=== PATIENT | male | born 1985 | race Two or more races ===

== ENCOUNTER 2019-05-02 16:52 | Emergency (ER) | payer MEDICAID, OTHER ==
[~2019-05-02] VITALS: Ht 175.3 cm; Wt 99.8 kg
[2019-05-02] MEDS ORDERED: SODIUM CHLORIDE 0.9% 1,000 ML IVB ONE (17:53)
[2019-05-02] MEDS ORDERED: HALOPERIDOL LACTATE 5 MG/ML INJ VIAL IM ONE ×2 (18:00)
[2019-05-02] MEDS ORDERED: diphenhdrAMINE HCL 50 MG/1 ML VL ONE (18:17)
[2019-05-02] MEDS ORDERED: LORazepam 2MG/ML-1ML VIAL ONE (18:18)
[2019-05-02] MEDS ORDERED: LORazepam 2MG/ML-1ML VIAL IM ONE (18:30)
[2019-05-02] MEDS ORDERED: diphenhdrAMINE HCL 50 MG/1 ML VL IM ONE (18:30)
[2019-05-02 19:35] LABS: Basophils # (auto) 0 uL; Basophils % (auto) 0.5 % (0.0-2.0); Eosinophils # (auto) 0.2 uL; Eosinophils % (auto) 3.3 % (0.0-7.0); Hematocrit 43.4 % (41.0-53.0); Hemoglobin 14.7 g/dL (13.5-17.5); Lymphocytes # (auto) 2.2 uL; Lymphocytes % (auto) 31.4 % (10.0-50.0); Mean Corpuscular Hemoglobin 29.6 pg (28.0-32.0); Mean Corpuscular Hgb Conc. 33.8 g/dL (32.0-36.0); Mean Corpuscular Volume 87.6 fL (80.0-100.0); Monocytes # (auto) 0.8 uL; Neutrophils # (auto) 3.8 uL; Neutrophils % (auto) 53.8 % (37.0-80.0); Nucleated Red Blood Cells % 0.1 %; Platelet Count (auto) 270 10^3/uL (140-450); Red Blood Cells 4.95 10^6/uL (4.5-5.90); Red Cell Distribution Width 13.8 % (11.8-14.3)
[2019-05-02 19:41] LABS: Albumin 3.7 g/dL (3.4-5.0); Calcium 8.8 mg/dL (8.5-10.1); Potassium 3.6 mmol/L (3.5-5.1)
[2019-05-02 19:44] LABS: Bilirubin, Total 0.6 mg/dL (0.2-1.0); Total Protein 7.8 g/dL (6.4-8.2)
[2019-05-02 19:56] LABS: BUN/Creatinine Ratio 5.1
[2019-05-02 19:57] LABS: Acetaminophen < 2.0 ug/mL (10-30)
[2019-05-02 19:58] LABS: Salicylate 1.7 mg/dL (2.8-20.0)
[2019-05-02] MEDS ORDERED: POTASSIUM EFFERVESENT TAB 25 MEQ PO ONE (20:30)
[2019-05-02] MEDS ORDERED: InsuLIN REG 1unit/0.01ml Soln (100units/ml) IV ONE (20:30)
[2019-05-02] MEDS ORDERED: SODIUM CHLORIDE 0.9% 1,000 ML IV ONE (20:30)
[2019-05-02 20:58] LABS: Urine WBC None Seen /hpf (0 - 3)
[2019-05-02 21:23] LABS: Urine Bacteria FEW /hpf (None Seen); Urine Blood Negative /uL (Negative); Urine Specific Gravity 1.011 (1.001-1.035)
[2019-05-02 21:40] LABS: Alcohol, Urine < 3.0 mg/dL (0-5); Amphetamine Screen, Urine POSITIVE (NEGATIVE); Barbiturate Scree,Urine NEGATIVE (NEGATIVE); Benzodiazephine Screen, Urine NEGATIVE (NEGATIVE); Cannabinoid Screen, Urine NEGATIVE (NEGATIVE); Cocaine Screen, Urine NEGATIVE (NEGATIVE); Opiate Scree,Urine NEGATIVE (NEGATIVE); Phencyclidine Screen, Urine NEGATIVE (NEGATIVE)
[2019-05-02] MEDS ORDERED: InsuLIN REG 1unit/0.01ml Soln (100units/ml) SC ONE (23:30)
[2019-05-03] MEDS ORDERED: LORazepam 2MG/ML-1ML VIAL IM ONE (14:30)
[2019-05-03] MEDS ORDERED: diphenhdrAMINE HCL 50 MG/1 ML VL IM ONE (14:30)
[2019-05-03] MEDS ORDERED: HALOPERIDOL LACTATE 5 MG/ML INJ VIAL IM ONE (14:30)
[2019-05-03] MEDS ORDERED: LORazepam 2MG/ML-1ML VIAL ONE (14:35)
[2019-05-04] MEDS: LORazepam 0.5 MG TAB PO PRN (04:57)
[2019-05-04] MEDS ORDERED: SODIUM CHLORIDE 0.9% 2,000 ML IV ONE (08:15)
[2019-05-04] MEDS ORDERED: OLANZapine 5 MG TAB PO SCH (10:00)
[2019-05-04] MEDS ORDERED: INSULIN LISPRO (HUMAN) 100 UNITS/ML ML SC ONE (11:30)
[2019-05-04] MEDS ORDERED: InsuLIN REG 1unit/0.01ml Soln (100units/ml) IV ONE (11:30)
[2019-05-04] MEDS ORDERED: metFORMIN HYDROCHLORIDE 500 MG TAB PO ONE (12:30)
[2019-05-04] MEDS ORDERED: LORazepam 0.5 MG TAB PO ONE ×2 (21:15→21:30)
[2019-05-05] MEDS ORDERED: DEXTROSE (50%) 50ML SYRG IV PRN (08:15)
[2019-05-05] MEDS ORDERED: InsuLIN REG 1unit/0.01ml Soln (100units/ml) SC ONE (08:30)
[2019-05-05] MEDS ORDERED: metFORMIN HYDROCHLORIDE 500 MG TAB PO SCH (10:00)
[2019-05-05] MEDS: risperiDONE 1 MG TAB PO SCH ×2 (11:03→22:19)
[2019-05-05] MEDS: ACCU-CHEK COMFORT CURVE STRIP VI SCH ×2 (12:40→18:11)
[2019-05-05] MEDS: InsuLIN REG 1unit/0.01ml Soln (100units/ml) SC SCH ×2 (12:45→18:11)
[2019-05-05] MEDS: LORazepam 0.5 MG TAB PO PRN (18:11)
[2019-05-05] MEDS ORDERED: LORazepam 0.5 MG TAB PO PRN (18:15)
[2019-05-06] MEDS: InsuLIN REG 1unit/0.01ml Soln (100units/ml) SC SCH ×2 (00:40→06:19)
[2019-05-06] MEDS ORDERED: InsuLIN REG 1unit/0.01ml Soln (100units/ml) ONE ×2 (00:44→06:16)
[2019-05-06 06:01] VITALS: BP 108/68
[2019-05-06] MEDS: ACCU-CHEK COMFORT CURVE STRIP VI SCH ×2 (06:05)
[2019-05-06] MEDS ORDERED: metFORMIN HYDROCHLORIDE 500 MG TAB ONE (07:28)
[2019-05-06] MEDS ORDERED: metFORMIN HYDROCHLORIDE 500 MG TAB PO SCH (08:00)
[2019-05-06] MEDS ORDERED: risperiDONE 1 MG TAB ONE (10:05)
[2019-05-06] MEDS: risperiDONE 1 MG TAB PO SCH (10:10)
== END 2019-05-06 11:32 | disposition home or self-care (01) ==
LOC: EDBD 16:52 → EDSEX 17:02 → ER 17:02
DX: F29 Unspecified psychosis not due to a substance or known physiological condition (principal); R41.0 Disorientation, unspecified; F17.210 Nicotine dependence, cigarettes, uncomplicated; F12.10 Cannabis abuse, uncomplicated; F41.9 Anxiety disorder, unspecified; F20.9 Schizophrenia, unspecified
CPT/HCPCS: 36415; 71045; 80053; 80307; 80320; 80329; 81001; 82550; 82962; 85025; 93005; 96361; 96372; 96374; 96376; 99285; J1200; J1630; J1815; J2060; J7030

== ENCOUNTER 2019-05-07 23:10 | Emergency (ER) | payer MEDICAID ==
[~2019-05-07] VITALS: Ht 172.7 cm; Wt 86.2 kg
[2019-05-07 23:20] VITALS: BP 127/88
[2019-05-07 23:58] LABS: Basophils # (auto) 0 uL; Basophils % (auto) 0.5 % (0.0-2.0); Eosinophils # (auto) 0.1 uL; Hematocrit 44.7 % (41.0-53.0); Lymphocytes # (auto) 2.2 uL; Lymphocytes % (auto) 28.2 % (10.0-50.0); Mean Corpuscular Hemoglobin 30.8 pg (28.0-32.0); Mean Corpuscular Hgb Conc. 33.6 g/dL (32.0-36.0); Mean Corpuscular Volume 91.7 fL (80.0-100.0); Monocytes # (auto) 0.7 uL; Monocytes % (auto) 9.5 % (0.0-12.0); Neutrophils # (auto) 4.7 uL; Neutrophils % (auto) 60.8 % (37.0-80.0); Platelet Count (auto) 283 10^3/uL (140-450); Red Blood Cells 4.88 10^6/uL (4.5-5.90); Red Cell Distribution Width 13.6 % (11.8-14.3); White Blood Cell 7.7 10^3/uL (4.4-10.8)
[2019-05-08 00:14] LABS: Salicylate 2.3 mg/dL (2.8-20.0)
[2019-05-08 00:15] LABS: Acetaminophen < 2.0 ug/mL (10-30); Alanine Aminotransferase 23 U/L (16-61); Albumin 3.5 g/dL (3.4-5.0); Anion Gap 15 (5-15); Aspartate Aminotransferase 15 U/L (15-37); BUN/Creatinine Ratio 5.8; Blood Alcohol < 3.0 mg/dL (0-5); Blood Urea Nitrogen 9 mg/dL (7-18); Carbon Dioxide 17 mmol/L (21-32); Chloride 96 mmol/L (98-107); GFR African American 66 mL/min; GFR Non-African American 55 mL/min; Sodium 128 mmol/L (136-145)
[2019-05-08 00:17] LABS: Alcohol, Urine < 3.0 mg/dL (0-5); Amphetamine Screen, Urine NEGATIVE (NEGATIVE); Barbiturate Scree,Urine NEGATIVE (NEGATIVE); Benzodiazephine Screen, Urine NEGATIVE (NEGATIVE); Cannabinoid Screen, Urine NEGATIVE (NEGATIVE); Cocaine Screen, Urine NEGATIVE (NEGATIVE); Opiate Scree,Urine NEGATIVE (NEGATIVE); Phencyclidine Screen, Urine NEGATIVE (NEGATIVE)
[2019-05-08 00:22] LABS: Alkaline Phosphatase 178 U/L (45-117); Bilirubin, Total 0.3 mg/dL (0.2-1.0); Calcium 8.6 mg/dL (8.5-10.1); Total Protein 8.2 g/dL (6.4-8.2)
[2019-05-08] MEDS: SODIUM CHLORIDE 0.9% 1,000 ML IV ONE ×3 (00:33→01:09)
[2019-05-08 00:34] LABS: Glucose 741 mg/dL (74-106)
[2019-05-08] MEDS: LORazepam 2MG/ML-1ML VIAL IV ONE (01:09)
[2019-05-08] MEDS: InsuLIN REG 1unit/0.01ml Soln (100units/ml) IV ONE ×3 (01:09→04:04)
[2019-05-08] MEDS: HALOPERIDOL LACTATE 5 MG/ML INJ VIAL IM ONE (06:27)
== END 2019-05-08 07:00 | disposition home or self-care (01) ==
LOC: EDBD 23:10 → ER 23:10
DX: F20.0 Paranoid schizophrenia (principal); E11.65 Type 2 diabetes mellitus with hyperglycemia; F17.210 Nicotine dependence, cigarettes, uncomplicated
CPT/HCPCS: 36415; 80053; 80307; 80320; 80329; 82010; 82962; 85025; 96361; 96372; 96374; 96375; 96376; 99283; J1630; J1815; J2060; J7030

== ENCOUNTER 2019-05-08 13:11 | Inpatient (IN) | payer MEDICAID, OTHER ==
[~2019-05-08] VITALS: Ht 175.3 cm; Wt 215.0 kg
[2019-05-08 14:05] LABS: Basophils # (auto) 0 uL; Basophils % (auto) 0.7 % (0.0-2.0); Eosinophils # (auto) 0.2 uL; Eosinophils % (auto) 3.6 % (0.0-7.0); Hematocrit 41.4 % (41.0-53.0); Hemoglobin 13.7 g/dL (13.5-17.5); Lymphocytes # (auto) 1.5 uL; Lymphocytes % (auto) 31.2 % (10.0-50.0); Mean Corpuscular Hgb Conc. 33.2 g/dL (32.0-36.0); Mean Corpuscular Volume 90.3 fL (80.0-100.0); Monocytes # (auto) 0.4 uL; Monocytes % (auto) 9.4 % (0.0-12.0); Neutrophils # (auto) 2.6 uL; Neutrophils % (auto) 55.1 % (37.0-80.0); Nucleated Red Blood Cells % 0.1 %; Platelet Count (auto) 252 10^3/uL (140-450); Red Blood Cells 4.59 10^6/uL (4.5-5.90); Red Cell Distribution Width 13.6 % (11.8-14.3); White Blood Cell 4.8 10^3/uL (4.4-10.8)
[2019-05-08 14:25] LABS: Chloride 100 mmol/L (98-107); Potassium 4.3 mmol/L (3.5-5.1); Sodium 132 mmol/L (136-145)
[2019-05-08 14:36] LABS: Anion Gap 8 (5-15); BUN/Creatinine Ratio 7.6; Blood Alcohol < 3.0 mg/dL (0-5); Blood Urea Nitrogen 10 mg/dL (7-18); Calcium 8.3 mg/dL (8.5-10.1); Carbon Dioxide 24 mmol/L (21-32); GFR African American 79 mL/min; GFR Non-African American 66 mL/min
[2019-05-08 14:45] LABS: Glucose 703 mg/dL (74-106)
[2019-05-08] MEDS ORDERED: SODIUM CHLORIDE 0.9% 1,000 ML IVB ONE (14:52)
[2019-05-08] MEDS ORDERED: InsuLIN REG 1unit/0.01ml Soln (100units/ml) IV ONE (15:00)
[2019-05-08 15:44] LABS: Alcohol, Urine < 3.0 mg/dL (0-5); Amphetamine Screen, Urine NEGATIVE (NEGATIVE); Barbiturate Scree,Urine NEGATIVE (NEGATIVE); Benzodiazephine Screen, Urine NEGATIVE (NEGATIVE); Cannabinoid Screen, Urine NEGATIVE (NEGATIVE); Cocaine Screen, Urine NEGATIVE (NEGATIVE); Opiate Scree,Urine NEGATIVE (NEGATIVE); Phencyclidine Screen, Urine NEGATIVE (NEGATIVE)
[2019-05-08] MEDS ORDERED: DEXTROSE (50%) 50ML SYRG IV PRN (16:00)
[2019-05-08] MEDS ORDERED: NITROGLYCERIN 0.4 MG SL TAB SL PRN (16:00)
[2019-05-08] MEDS ORDERED: MORPHINE SULF INJ 2 MG/ML SYRINGE 1ML IV PRN (16:00)
[2019-05-08] MEDS ORDERED: ACETAMINOPHEN 500 MG TAB PO PRN (16:00)
[2019-05-08] MEDS ORDERED: PROMETHAZINE HCL 25 MG/ML 1ML IV PRN (16:00)
[2019-05-08] MEDS ORDERED: TEMAZEPAM 15 MG CAP PO PRN (16:00)
[2019-05-08] MEDS ORDERED: INSULIN LANTUS (GLARGINE) 1 /0.01ml (100units/ml) SC ONE (16:00)
[2019-05-08] MEDS ORDERED: traMADol HCL 50 MG TAB PO PRN (16:00)
[2019-05-08] MEDS ORDERED: LACTULOSE 20Gm/30ML SOLN PO PRN (16:00)
[2019-05-08] MEDS: ACCU-CHEK COMFORT CURVE STRIP VI SCH ×2 (16:15→19:45)
[2019-05-08] MEDS: SODIUM CHLORIDE 0.9% 1,000 ML IV SCH ×2 (16:16→22:27)
[2019-05-08] MEDS: InsuLIN REG 1unit/0.01ml Soln (100units/ml) SC SCH ×2 (16:22→21:01)
[2019-05-08 16:55] LABS: Amylase 34 U/L (25-115); Lipase 194 U/L (73-393)
[2019-05-08 22:00] VITALS: BP 112/64
[2019-05-08] MEDS: INSULIN LANTUS (GLARGINE) 1 /0.01ml (100units/ml) SC SCH (22:00)
[2019-05-08] MEDS: FAMOTIDINE 20 MG TAB PO SCH (22:00)
[2019-05-09] MEDS: ACCU-CHEK COMFORT CURVE STRIP VI SCH ×6 (04:00→22:02)
[2019-05-09] MEDS: InsuLIN REG 1unit/0.01ml Soln (100units/ml) SC SCH ×6 (04:00→22:01)
[2019-05-09 05:00] VITALS: BP 119/71
[2019-05-09] MEDS: SODIUM CHLORIDE 0.9% 1,000 ML IV SCH (05:07)
[2019-05-09] MEDS: INSULIN LANTUS (GLARGINE) 1 /0.01ml (100units/ml) SC SCH ×2 (07:00→22:09)
--- NOTE | 2019-05-09 07:32 | NUR ---
Opening Shift Note Assumed care of patient, patient asleep verbally awake and alert. No S/S of distress/SOB or pain. Instructed on POC and to call for assist PRN, will continue to monitor for changes Q1hr and PRN
--- NOTE | 2019-05-09 07:51 | NUR ---
rounded on patient patient in bathroom using inappropriate language and yelling at himself cussing, advised patient to go back to bed and made verbal contract with patient reorientated him to the hospital and that that type of behavior is not tolerated in the hospital pt verbalized understanding made aware of his surroundings
[2019-05-09 08:53] VITALS: BP 132/75
[2019-05-09] MEDS: FAMOTIDINE 20 MG TAB PO SCH ×2 (08:57→22:09)
[2019-05-09] MEDS: ENOXAPARIN SOD 40 MG/0.4 ML SYRINGE SC SCH (08:57)
--- NOTE | 2019-05-09 09:38 | NUR ---
PT MOVED TO NEW PRIVATE ROOM WITH TOMI PT RECOGNIZES THAT HE IS HEARING VOICES HE CURRENTLY STATES THE VOICES ARE NOT TELLING HIM TO KILL HIMSELF OR OTHERS BUT STATES HE STILL FEELS SUICIDAL PATIENT ALSO STATES THAT HE USED TO TAKE RISPERDAL BID BUT DOESNT REMEBER THE DOSAGE AND IT HELPED CALM THE VOICES
--- NOTE | 2019-05-09 10:37 | NUR ---
MD HILTON ROUNDED ON PATIENT WILL PUT IN ORDER FOR RISPERDAL BID
[2019-05-09] MEDS ORDERED: risperiDONE 1 MG TAB PO ONE (10:45)
--- NOTE | 2019-05-09 10:45 | NUR ---
per ok to discontinue tele monitor downgrade to medsurg and discontinue iv fluids sitter at bedside tele psych monitor placed in front of patient
--- NOTE | 2019-05-09 15:52 | NUR ---
assessment Patient is a 34 year old male who is alert and hearing voices. patient informed me he was diagnosed years ago with Schizophrenia. Patient informed me he was living at [facility] in [place] and Cain Willingham is his conservator for his SSI. I will continue to try and find [facility] in . Until then patient needs tele psych when medically stable and possible 50. Addendum: 05/09/19 at 1556 by Tawny PRIDE Amended: Links added.
--- NOTE | 2019-05-09 16:51 | NUR ---
Received consult for pt who is homeless. Pt states he was brought up here to the [facility] from a [facility] in [facility]. He was dropped off at the ER. The pt states that he has 4 people inside his head. He states they all tell him what to do. Pt states he has no family in the area. He was living in a detention and he got caught smoking behind the building. Pt states he has clothes, shoes but no where to go. He would like to go to a detention in [place]. Will consult with Geotechnicial Properties Technician II.
[2019-05-09] MEDS: risperiDONE 1 MG TAB PO SCH (17:30)
[2019-05-09 22:00] VITALS: BP 119/76
[2019-05-10] MEDS: InsuLIN REG 1unit/0.01ml Soln (100units/ml) SC SCH ×7 (01:25→21:51)
[2019-05-10] MEDS: ACCU-CHEK COMFORT CURVE STRIP VI SCH ×7 (01:26→21:51)
[2019-05-10 05:00] VITALS: BP 122/75
[2019-05-10] MEDS: INSULIN LANTUS (GLARGINE) 1 /0.01ml (100units/ml) SC SCH ×2 (06:02→21:50)
[2019-05-10 06:08] LABS: Basophils # (auto) 0 uL; Basophils % (auto) 0.7 % (0.0-2.0); Eosinophils # (auto) 0.2 uL; Eosinophils % (auto) 3.6 % (0.0-7.0); Hematocrit 39.4 % (41.0-53.0); Hemoglobin 13.5 g/dL (13.5-17.5); Lymphocytes # (auto) 2.7 uL; Lymphocytes % (auto) 42.3 % (10.0-50.0); Mean Corpuscular Hemoglobin 29.9 pg (28.0-32.0); Mean Corpuscular Hgb Conc. 34.2 g/dL (32.0-36.0); Mean Corpuscular Volume 87.5 fL (80.0-100.0); Monocytes # (auto) 0.5 uL; Monocytes % (auto) 8.1 % (0.0-12.0); Neutrophils # (auto) 2.9 uL; Neutrophils % (auto) 45.3 % (37.0-80.0); Nucleated Red Blood Cells % 0.2 %; Platelet Count (auto) 270 10^3/uL (140-450); Red Cell Distribution Width 13.6 % (11.8-14.3); White Blood Cell 6.4 10^3/uL (4.4-10.8)
[2019-05-10 06:11] LABS: Calcium 8.5 mg/dL (8.5-10.1); Potassium 3.7 mmol/L (3.5-5.1)
[2019-05-10 06:12] LABS: BUN/Creatinine Ratio 9.9
[2019-05-10 08:00] VITALS: BP 111/61
[2019-05-10] MEDS: risperiDONE 1 MG TAB PO SCH ×2 (08:32→17:32)
[2019-05-10] MEDS: FAMOTIDINE 20 MG TAB PO SCH ×2 (08:32→21:49)
[2019-05-10] MEDS: ENOXAPARIN SOD 40 MG/0.4 ML SYRINGE SC SCH (08:32)
[2019-05-10 09:00] VITALS: BP 111/61
--- NOTE | 2019-05-10 10:00 | NUR ---
Patient is screaming inappropriate language towards the window. Asked him to have a seat and to lower his voice as there are others who are trying to rest.
--- NOTE | 2019-05-10 10:47 | NUR ---
Opening Shift Note Assumed care of patient, awake and alert. Currently patient is having breakfast in bed, no c/o pain, patient denies hearing voices at this time. No S/S of distress/SOB or pain. Instructed on POC and to call for assist PRN, will continue to monitor for changes Q1hr and PRN.Sitter at bedside for safety. Addendum: 05/10/19 at 1057 by Rosie Joyner RN 08:00 opening note
--- NOTE | 2019-05-10 12:24 | NUR ---
rounds Patient is sitting up in bed enjoying lunch, no c/o pain. Patient denies any thoughts of hurting self/others. Bed at lowest locked position and call light within reach. Sitter at bedside for safety.
[2019-05-10 17:00] VITALS: BP 92/53
--- NOTE | 2019-05-10 19:46 | NUR ---
CLOSING NOTE CARE ENDORSED TO NOC RN, SITTER AT BEDSIDE.
[2019-05-11] MEDS: ACCU-CHEK COMFORT CURVE STRIP VI SCH ×5 (05:20→20:07)
[2019-05-11] MEDS: InsuLIN REG 1unit/0.01ml Soln (100units/ml) SC SCH ×5 (05:20→20:15)
[2019-05-11] MEDS: INSULIN LANTUS (GLARGINE) 1 /0.01ml (100units/ml) SC SCH ×2 (07:00→21:40)
--- NOTE | 2019-05-11 08:03 | NUR ---
PAGECalvin CESPEDES IN REGARDS TO PATIENTS BLOOD GLUCOSE OF 458. ORDERED LANTUS 25 UNITS BID AND 15 UNTIS REGULAR INSULIN
[2019-05-11] MEDS: risperiDONE 1 MG TAB PO SCH ×2 (08:42→17:16)
[2019-05-11 09:00] VITALS: BP 131/78
[2019-05-11] MEDS: ENOXAPARIN SOD 40 MG/0.4 ML SYRINGE SC SCH (11:04)
[2019-05-11] MEDS: FAMOTIDINE 20 MG TAB PO SCH ×2 (11:04→21:40)
[2019-05-11 11:56] LABS: BUN/Creatinine Ratio 12.1; Potassium 4.3 mmol/L (3.5-5.1)
[2019-05-11 13:00] VITALS: BP 129/70
[2019-05-11 13:01] LABS: Cholesterol 152 mg/dL (< 200); HDL Cholesterol 61 mg/dL (40-59); LDL Cholesterol 76 mg/dL (< 100); Triglycerides 134 mg/dL (< 150)
--- NOTE | 2019-05-11 16:03 | NUR ---
POC Patient to be discharged tomorrow to facility. Patient states he lives at [facility] long-term for recovery.
[2019-05-11 17:00] VITALS: BP 121/80
--- NOTE | 2019-05-11 19:15 | NUR ---
OPENING NOTE- NOC SHIFT PATIENT IS ALERT AND ORIENTED. PATIENT KNOWS WHERE HE IS AT, SITUATION, PREVIOUS LIVING ARRANGEMENT, TIME AND PLACE. PATIENT STATES THAT HE HEARS VOICES THAT TALK TO HIM AND THAT THE VOICES TALK TO EACH OTHER WELL. PATIENT IS TALKING AND WHEN ASKED WHO HE IS TALKING TO HE STATES THAT HE IS ANSWERING TO THE VOICES THAT HEARS. HE STATES "HE IS THE ONE WHO BLEW UP THE OTHER BUILDING" "GOING TO RUN AGAIN, GOING TO RUN AGAIN". PATIENT DENIES THAT THE VOICES TELL HIM TO HURST HIMSELF OR HURT OTHERS. NURSE MISSION PLANNER IS AT BEDSIDE FOR SAFETY PRECAUTIONS. BEDSIDE TABLE WITHIN REACH, CALL LIGHT WITHIN REACH. WILL CONTINUE TO MONITOR Q1H AND PRN. NO S/SX OF DISTRESS, SOB OR PAIN. PATIENT IS COOPERATIVE WITH ASSESSMENT AT THIS TIME AND STATES THAT HE UNDERSTANDS POC WHEN EXPLAINED TO HIM.
[2019-05-11 20:15] VITALS: BP 126/72
--- NOTE | 2019-05-11 21:08 | NUR ---
PROVIDED PATIENT WITH TURKEY SANDWICH, LOW FAT MILK AND SUGAR FREE JELLO PER PATIENT REQUEST.
[2019-05-12] MEDS: InsuLIN REG 1unit/0.01ml Soln (100units/ml) SC SCH ×6 (00:06→22:40)
[2019-05-12] MEDS: ACCU-CHEK COMFORT CURVE STRIP VI SCH ×6 (00:07→22:40)
--- NOTE | 2019-05-12 00:50 | NUR ---
PATIENT CURSING IN LOUD VOICE, IN BED. NOT COMBATIVE. COOPERATIVE WHEN ASKED TO KEEP HIS VOICE DOWN IN ORDER TO LET OTHER PATIENTS IN THE HOSPITAL SLEEP.
[2019-05-12] MEDS: INSULIN LANTUS (GLARGINE) 1 /0.01ml (100units/ml) SC SCH ×2 (07:00→22:40)
--- NOTE | 2019-05-12 07:36 | NUR ---
ENDORSED PATIENT CARE TO DAY SHIFT NURSE YAZMIN AVENDANO. NO S/SX OF DISTRESS, SOB OR PAIN. PATIENT IS RESTING IN BED. NURSE CUSTOMER ENGAGEMENT ANALYST AT BEDSIDE FOR SAFETY PRECAUIONS.
--- NOTE | 2019-05-12 07:40 | NUR ---
Opening Shift Note Assumed care of patient, awake and alert, eating breakfast independently. No S/S of distress/SOB or pain on room air. Instructed on POC and to call for assist PRN, will continue to monitor for changes Q1hr and PRN. Bed in low and locked position, rails up x2, no-slip socks on, product safety head at bedside.
[2019-05-12] MEDS: risperiDONE 1 MG TAB PO SCH ×2 (08:44→18:49)
[2019-05-12] MEDS: ENOXAPARIN SOD 40 MG/0.4 ML SYRINGE SC SCH (10:03)
[2019-05-12] MEDS: FAMOTIDINE 20 MG TAB PO SCH ×2 (10:04→22:40)
--- NOTE | 2019-05-12 15:30 | NUR ---
DR HILTON AT BEDSIDE NO NEW ORDERS
--- NOTE | 2019-05-12 19:20 | NUR ---
OPENING NOTE- NOC SHIFT PATIENT IS IN BED RESTING COMFORTABLE. NO S/SX OF DISTRESS, SOB OR PAIN. NURSE CERAMIC ARTIST IS AT BEDSIDE FOR SAFETY PRECAUTIONS. BED IS LOCKED AT LOWEST POSITION, BED RAILS UP X2 AND BEDSIDE TABLE IS WITHIN REACH. WILL CONTINUE TO MONITOR Q1H AND PRN.
--- NOTE | 2019-05-12 20:00 | NUR ---
PATIENT REFUSED BLOOD SUGAR CHECK. HE IS UPSET AND STATES THAT HE WANTS TO SLEEP AND DOES NOT WANT TO BE WAKEN UP WHEN HE IS SLEEPING.
[2019-05-12 20:15] VITALS: BP 112/58
[2019-05-12 22:00] VITALS: BP 112/58
--- NOTE | 2019-05-13 | NUR ---
PATIENT REFUSED MIDNIGHT BLOOD SUGAR CHECK. PATIENT BECOMES AGGRESSIVE WHEN BEING WAKEN UP. HE USES THE COVERS TO COVER HIMSELF TO HIS HEAD IN ORDER TO AVOID TREATMENT. EDUCATED PATIENT REGARDING IMPORTANCE OF BLOOD SUGAR CHECKS AND INSULIN ADMINISTRATION TO CONTROL HIS HIGH BLOOD SUGARS; PATIENT STILL REFUSES.
[2019-05-13] MEDS: InsuLIN REG 1unit/0.01ml Soln (100units/ml) SC SCH ×4 (04:12→12:00)
[2019-05-13] MEDS: ACCU-CHEK COMFORT CURVE STRIP VI SCH ×4 (04:12→12:00)
[2019-05-13 05:00] VITALS: BP 124/74
[2019-05-13 07:00] LABS: Basophils # (auto) 0 uL; Basophils % (auto) 0.6 % (0.0-2.0); Eosinophils # (auto) 0.2 uL; Hematocrit 42.8 % (41.0-53.0); Hemoglobin 14.7 g/dL (13.5-17.5); Lymphocytes # (auto) 2.1 uL; Lymphocytes % (auto) 30.7 % (10.0-50.0); Mean Corpuscular Hemoglobin 30.2 pg (28.0-32.0); Mean Corpuscular Hgb Conc. 34.3 g/dL (32.0-36.0); Mean Corpuscular Volume 87.9 fL (80.0-100.0); Monocytes # (auto) 0.5 uL; Neutrophils # (auto) 3.9 uL; Neutrophils % (auto) 57.7 % (37.0-80.0); Nucleated Red Blood Cells % 0.1 %; Platelet Count (auto) 271 10^3/uL (140-450); Red Blood Cells 4.87 10^6/uL (4.5-5.90); Red Cell Distribution Width 14.1 % (11.8-14.3); White Blood Cell 6.8 10^3/uL (4.4-10.8)
[2019-05-13] MEDS: INSULIN LANTUS (GLARGINE) 1 /0.01ml (100units/ml) SC SCH (07:08)
[2019-05-13 07:25] LABS: Calcium 9.4 mg/dL (8.5-10.1); Potassium 4.2 mmol/L (3.5-5.1)
[2019-05-13 07:28] LABS: BUN/Creatinine Ratio 18.3
--- NOTE | 2019-05-13 07:30 | NUR ---
Opening Shift Note Assumed care of patient, awake and alert. No S/S of distress/SOB or pain on room air. Instructed on POC and to call for assist PRN, will continue to monitor for changes Q1hr and PRN. Bed in low and locked position, rails up x2, no-slip socks on. furnace attendant at bedside.
--- NOTE | 2019-05-13 07:30 | NUR ---
ENDORSED PATIENT CARE TO DAY SHIFT NURSE YAZMIN AVENDANO. NO S/SX OF DISTRESS, SOB OR PAIN.
--- NOTE | 2019-05-13 07:55 | NUR ---
PATIENT REMOVED OWN IV STATED THAT HE IS SUPPOSED TO BE LEAVING THE HOSPITAL TODAY AND THAT HE DOES NOT NEED IT. PRESSURE DRESSING REFUSED, PATIENT HAD SCANT BLEEDING TO SITE. CATHETER FULLY INTACT ON REMOVAL. INFORMED PATIENT ON RISKS OF NOT HAVING AN IV WHILE PRESENT IN THE HOSPITAL BUT ADAMANTLY REFUSED STATING THAT HE DOESN'T NEED IT. WILL INFORM
[2019-05-13] MEDS: risperiDONE 1 MG TAB PO SCH (07:56)
--- NOTE | 2019-05-13 08:50 | NUR ---
SPOKE TO DR HILTON PATIENT IS ADAMANT ABOUT LEAVING HOSPITAL TODAY, INFORMED BY DR HILTON THAT THE PATIENT IS NO LONGER 5150 AND WE CANNOT HOLD HIM. PATIENT VERBALIZES THAT HE NEEDS CLOTHES AND TRANSPORTATION TO [facility]. WILL ATTEMPT TO FIND HIM CLOTHING FROM [employer]. CALL TO CASE MANAGEMENT REGARDING TAXI VOUCHER.
[2019-05-13] MEDS: ENOXAPARIN SOD 40 MG/0.4 ML SYRINGE SC SCH (10:00)
[2019-05-13] MEDS: FAMOTIDINE 20 MG TAB PO SCH (10:00)
--- NOTE | 2019-05-13 12:32 | NUR ---
AMA Note SHAINA CURRAN states they want to leave the hospital Against Medical Advice (AMA). Patient encouraged to stay for further treatment/stabilization. LIDA SANCHEZ notified of patient's wishes. Patient advised of the risks of leaving AMA. Patient verbalized understanding. Patient encouraged to return to the ER if symptoms do not improve or worsen.
== END 2019-05-13 12:30 | disposition left against medical advice (07) | DRG 52 ==
LOC: EDBD 13:11 → ER 13:24 → TELE 13:25 → TELE-WESTW 21:05 → WEST WING 05-09 20:53
PROVIDERS: ADMIT Internal Medicine; ATTEND Internal Medicine
DX: G92 Toxic encephalopathy (principal); N17.0 Acute kidney failure with tubular necrosis; E10.65 Type 1 diabetes mellitus with hyperglycemia; L03.115 Cellulitis of right lower limb; E87.1 Hypo-osmolality and hyponatremia; E10.21 Type 1 diabetes mellitus with diabetic nephropathy; F20.9 Schizophrenia, unspecified; Z68.45 Body mass index [BMI] 70 or greater, adult; F32.9 Major depressive disorder, single episode, unspecified; N18.9 Chronic kidney disease, unspecified; E66.9 Obesity, unspecified; L03.116 Cellulitis of left lower limb; Z53.29 Procedure and treatment not carried out because of patient's decision for other reasons; F15.10 Other stimulant abuse, uncomplicated; F17.210 Nicotine dependence, cigarettes, uncomplicated; F12.10 Cannabis abuse, uncomplicated; E10.22 Type 1 diabetes mellitus with diabetic chronic kidney disease; R45.851 Suicidal ideations; Z91.14 Patient's other noncompliance with medication regimen; Z59.0 Homelessness; Z82.49 Family history of ischemic heart disease and other diseases of the circulatory system; Z83.3 Family history of diabetes mellitus
CPT/HCPCS: 36415; 80048; 80061; 80307; 80320; 82010; 82150; 82962; 83036; 83690; 83735; 84443; 85025; 96361; 96372; 96374; G0378; J1815

== ENCOUNTER 2019-05-31 20:36 | Emergency (ER) | payer OTHER ==
[~2019-05-31] VITALS: Ht 175.3 cm; Wt 97.5 kg
[2019-05-31] MEDS ORDERED: SODIUM CHLORIDE 0.9% 1,000 ML IV ONE ×2 (21:00→23:15)
[2019-05-31] MEDS ORDERED: InsuLIN REG 1unit/0.01ml Soln (100units/ml) IV ONE (21:00)
[2019-05-31 21:19] LABS: Basophils # (auto) 0 uL; Basophils % (auto) 0.6 % (0.0-2.0); Eosinophils # (auto) 0.1 uL; Eosinophils % (auto) 0.9 % (0.0-7.0); Hematocrit 42.3 % (41.0-53.0); Hemoglobin 14.7 g/dL (13.5-17.5); Lymphocytes # (auto) 2.7 uL; Lymphocytes % (auto) 33.1 % (10.0-50.0); Mean Corpuscular Hemoglobin 30.3 pg (28.0-32.0); Mean Corpuscular Hgb Conc. 34.7 g/dL (32.0-36.0); Mean Corpuscular Volume 87.4 fL (80.0-100.0); Monocytes # (auto) 0.7 uL; Monocytes % (auto) 9.2 % (0.0-12.0); Neutrophils # (auto) 4.5 uL; Neutrophils % (auto) 56.2 % (37.0-80.0); Nucleated Red Blood Cells % 0.1 %; Platelet Count (auto) 309 10^3/uL (140-450); Red Blood Cells 4.84 10^6/uL (4.5-5.90); Red Cell Distribution Width 14.1 % (11.8-14.3)
[2019-05-31 21:36] LABS: INR 1.01 (0.9-1.15); Partial Thromboplastin Time 27.7 sec (23.64-32.05)
[2019-05-31 21:39] LABS: Albumin 4.2 g/dL (3.4-5.0); Calcium 9.5 mg/dL (8.5-10.1)
[2019-05-31 21:41] LABS: BUN/Creatinine Ratio 12.7; Bilirubin, Total 0.9 mg/dL (0.2-1.0); Total Protein 8.6 g/dL (6.4-8.2)
[2019-06-01] MEDS ORDERED: HALOPERIDOL LACTATE 5 MG/ML INJ VIAL ONE ×2 (02:07→22:12)
[2019-06-01] MEDS ORDERED: diphenhdrAMINE HCL 50 MG/1 ML VL ONE ×2 (02:07→22:12)
[2019-06-01] MEDS ORDERED: LORazepam 2MG/ML-1ML VIAL ONE ×2 (02:08→22:12)
[2019-06-01] MEDS ORDERED: HALOPERIDOL LACTATE 5 MG/ML INJ VIAL IM ONE ×2 (02:15→22:15)
[2019-06-01] MEDS ORDERED: LORazepam 2MG/ML-1ML VIAL IM ONE ×2 (02:15→22:15)
[2019-06-01] MEDS ORDERED: diphenhdrAMINE HCL 50 MG/1 ML VL IM ONE ×2 (02:15→22:15)
[2019-06-01 09:32] LABS: Urine Bacteria NONE SEEN /hpf (None Seen); Urine Blood Negative /uL (Negative); Urine Specific Gravity 1.036 (1.001-1.035); Urine WBC <1 /hpf (0 - 3)
[2019-06-01 10:06] LABS: Alcohol, Urine < 3.0 mg/dL (0-5); Amphetamine Screen, Urine POSITIVE (NEGATIVE); Barbiturate Scree,Urine NEGATIVE (NEGATIVE); Benzodiazephine Screen, Urine NEGATIVE (NEGATIVE); Cannabinoid Screen, Urine NEGATIVE (NEGATIVE); Cocaine Screen, Urine NEGATIVE (NEGATIVE); Opiate Scree,Urine NEGATIVE (NEGATIVE); Phencyclidine Screen, Urine NEGATIVE (NEGATIVE)
[2019-06-01] MEDS: LORazepam 2MG/ML-1ML VIAL IV SCH (22:00)
[2019-06-01] MEDS: risperiDONE 1 MG TAB PO SCH (22:30)
[2019-06-01] MEDS ORDERED: DEXTROSE (50%) 50ML SYRG IV ONE (22:30)
[2019-06-02] MEDS ORDERED: ACCU-CHEK COMFORT CURVE STRIP VI ONE ×2 (07:00→11:30)
[2019-06-02] MEDS ORDERED: InsuLIN REG 1unit/0.01ml Soln (100units/ml) SC ONE ×2 (07:00→11:30)
[2019-06-02] MEDS ORDERED: DEXTROSE (50%) 50ML SYRG IV ONE (09:15)
[2019-06-02] MEDS: LORazepam 2MG/ML-1ML VIAL IV SCH (10:00)
[2019-06-02] MEDS: risperiDONE 1 MG TAB PO SCH (12:07)
[2019-06-02 18:17] VITALS: BP 103/64
== END 2019-06-02 19:25 | disposition home or self-care (01) ==
LOC: ER 20:38
DX: E11.65 Type 2 diabetes mellitus with hyperglycemia (principal); F20.9 Schizophrenia, unspecified; F31.9 Bipolar disorder, unspecified; F17.210 Nicotine dependence, cigarettes, uncomplicated; F12.10 Cannabis abuse, uncomplicated; F15.10 Other stimulant abuse, uncomplicated
CPT/HCPCS: 36415; 80053; 80307; 81001; 82010; 82962; 85025; 85610; 85730; 93005; 96361; 96372; 96374; 99284; J1200; J1630; J1815; J2060; J7030

== ENCOUNTER 2019-06-23 16:48 | Emergency (ER) | payer OTHER ==
[~2019-06-23] VITALS: Ht 180.3 cm; Wt 72.6 kg
[2019-06-23] MEDS ORDERED: InsuLIN REG 1unit/0.01ml Soln (100units/ml) IV ONE (19:15)
[2019-06-23] MEDS ORDERED: SODIUM CHLORIDE 0.9% 1,000 ML IV ONE ×2 (19:15→20:45)
[2019-06-23 21:05] LABS: Basophils # (auto) 0 uL; Basophils % (auto) 0.5 % (0.0-2.0); Eosinophils # (auto) 0.2 uL; Eosinophils % (auto) 1.9 % (0.0-7.0); Hematocrit 40.7 % (41.0-53.0); Hemoglobin 13.6 g/dL (13.5-17.5); Lymphocytes # (auto) 3.2 uL; Lymphocytes % (auto) 35.6 % (10.0-50.0); Mean Corpuscular Hgb Conc. 33.4 g/dL (32.0-36.0); Mean Corpuscular Volume 89.6 fL (80.0-100.0); Monocytes # (auto) 0.8 uL; Monocytes % (auto) 8.8 % (0.0-12.0); Neutrophils # (auto) 4.8 uL; Neutrophils % (auto) 53.2 % (37.0-80.0); Nucleated Red Blood Cells % 0.1 %; Platelet Count (auto) 343 10^3/uL (140-450); Red Blood Cells 4.54 10^6/uL (4.5-5.90); Red Cell Distribution Width 14.3 % (11.8-14.3); White Blood Cell 9.1 10^3/uL (4.4-10.8)
[2019-06-23 21:17] LABS: Albumin 3.6 g/dL (3.4-5.0); Anion Gap 12 (5-15); Blood Alcohol < 3.0 mg/dL (0-5); Blood Urea Nitrogen 18 mg/dL (7-18); Calcium 8.5 mg/dL (8.5-10.1); Carbon Dioxide 25 mmol/L (21-32); Chloride 96 mmol/L (98-107); Potassium 4.1 mmol/L (3.5-5.1); Sodium 133 mmol/L (136-145)
[2019-06-23 21:18] LABS: Salicylate < 1.7 mg/dL (2.8-20.0)
[2019-06-23 21:20] LABS: Alanine Aminotransferase 17 U/L (16-61); Aspartate Aminotransferase 9 U/L (15-37); Bilirubin, Total 0.6 mg/dL (0.2-1.0); GFR African American 88 mL/min; GFR Non-African American 73 mL/min; Total Protein 7.5 g/dL (6.4-8.2)
[2019-06-23 21:21] LABS: Lactic Acid w/Reflex 3.4 mmol/L (0.4-2.0)
[2019-06-23 21:26] LABS: Alkaline Phosphatase 130 U/L (45-117)
[2019-06-23 21:27] LABS: Acetaminophen < 2.0 ug/mL (10-30)
[2019-06-23 21:33] LABS: Glucose 568 mg/dL (74-106)
[2019-06-23 21:41] LABS: BUN/Creatinine Ratio 14.9
[2019-06-23] MEDS ORDERED: VANCOMYCIN PER PHARMACY 1,000 MG IV SCH (21:45)
[2019-06-23] MEDS ORDERED: SODIUM CHLORIDE 0.9% 2,200 ML IV ONE (21:45)
[2019-06-23] MEDS ORDERED: VANCOMYCIN 1GM/250ML 250 ML IV SCH (22:00)
[2019-06-23 22:17] LABS: Creatine Kinase IFCC 183 U/L (39-308)
[2019-06-23 22:25] LABS: INR 0.99 (0.9-1.15); Partial Thromboplastin Time 29.8 sec (23.64-32.05)
[2019-06-24] MEDS: PIPERACILLIN-TAZOB 3.375GM 100 ML IV SCH ×2 (00:07→06:00)
[2019-06-24] MEDS: ACCU-CHEK COMFORT CURVE STRIP VI SCH ×4 (01:15→07:30)
[2019-06-24] MEDS ORDERED: InsuLIN R (HUMAN) 100 UNITS in SODIUM CHL 0.9% 99 ML IV SCH ×4 (01:28)
[2019-06-24] MEDS ORDERED: DEXTROSE (50%) 50ML SYRG IV PRN (01:30)
[2019-06-24] MEDS ORDERED: INSULIN LANTUS (GLARGINE) 1 /0.01ml (100units/ml) SC ONE (01:30)
[2019-06-24] MEDS ORDERED: InsuLIN REG 1unit/0.01ml Soln (100units/ml) IV ONE (03:30)
[2019-06-24 05:11] LABS: Urine Bacteria NONE SEEN /hpf (None Seen); Urine Blood Negative /uL (Negative); Urine Specific Gravity 1.035 (1.001-1.035); Urine WBC <1 /hpf (0 - 3)
[2019-06-24 05:15] LABS: Alcohol, Urine < 3.0 mg/dL (0-5); Amphetamine Screen, Urine POSITIVE (NEGATIVE); Barbiturate Scree,Urine NEGATIVE (NEGATIVE); Benzodiazephine Screen, Urine NEGATIVE (NEGATIVE); Cannabinoid Screen, Urine NEGATIVE (NEGATIVE); Cocaine Screen, Urine NEGATIVE (NEGATIVE); Opiate Scree,Urine NEGATIVE (NEGATIVE); Phencyclidine Screen, Urine NEGATIVE (NEGATIVE)
[2019-06-24] MEDS ORDERED: PIPERACILLIN-TAZOB 3.375GM 100 ML IV ONE (06:30)
[2019-06-24 07:30] VITALS: BP 101/59
[2019-06-25] MEDS ORDERED: INSULIN LANTUS (GLARGINE) 1 /0.01ml (100units/ml) SC SCH (10:00)
== END 2019-06-24 08:46 | disposition home or self-care (01) ==
LOC: EDBD 16:48 → ER 16:54
DX: E11.65 Type 2 diabetes mellitus with hyperglycemia (principal); F20.9 Schizophrenia, unspecified; Z91.19 Patient's noncompliance with other medical treatment and regimen; M79.672 Pain in left foot; M79.671 Pain in right foot
CPT/HCPCS: 36415; 36600; 70450; 71045; 80053; 80307; 80320; 80329; 81001; 82010; 82550; 82805; 82962; 83605; 83735; 84484; 85025; 85379; 85384; 85610; 85730; 87040; 87086; 96361; 96365; 96366; 96372; 96375; 96376; 99284; J1815; J2543; J3370

== ENCOUNTER 2019-06-26 12:38 | Emergency (ER) | payer OTHER ==
[~2019-06-26] VITALS: Ht 175.3 cm; Wt 90.7 kg
[2019-06-26] MEDS ORDERED: SODIUM CHLORIDE 0.9% 1,000 ML IV ONE ×2 (12:48)
[2019-06-26] MEDS ORDERED: SODIUM CHLORIDE 0.9% 2,000 ML IV ONE ×2 (13:15→14:30)
[2019-06-26 13:32] LABS: Basophils # (auto) 0 uL; Basophils % (auto) 0.6 % (0.0-2.0); Eosinophils # (auto) 0.2 uL; Eosinophils % (auto) 2.9 % (0.0-7.0); Hematocrit 38.5 % (41.0-53.0); Hemoglobin 12.7 g/dL (13.5-17.5); Lymphocytes # (auto) 1.5 uL; Lymphocytes % (auto) 22.9 % (10.0-50.0); Mean Corpuscular Hemoglobin 30.2 pg (28.0-32.0); Mean Corpuscular Volume 91.7 fL (80.0-100.0); Monocytes # (auto) 0.6 uL; Monocytes % (auto) 8.7 % (0.0-12.0); Neutrophils # (auto) 4.3 uL; Neutrophils % (auto) 64.9 % (37.0-80.0); Nucleated Red Blood Cells % 0.1 %; Platelet Count (auto) 267 10^3/uL (140-450); Red Cell Distribution Width 13.8 % (11.8-14.3); White Blood Cell 6.7 10^3/uL (4.4-10.8)
[2019-06-26 13:51] LABS: Albumin 3.4 g/dL (3.4-5.0); Calcium 8.6 mg/dL (8.5-10.1); Potassium 3.7 mmol/L (3.5-5.1)
[2019-06-26 13:56] LABS: Lactic Acid w/Reflex 6.5 mmol/L (0.4-2.0)
[2019-06-26 13:59] LABS: Bilirubin, Total 0.6 mg/dL (0.2-1.0); Total Protein 6.9 g/dL (6.4-8.2)
[2019-06-26 14:04] LABS: Urine Bacteria NONE SEEN /hpf (None Seen); Urine Blood Negative /uL (Negative); Urine Specific Gravity 1.028 (1.001-1.035); Urine WBC <1 /hpf (0 - 3)
[2019-06-26] MEDS ORDERED: InsuLIN REG 1unit/0.01ml Soln (100units/ml) IV ONE ×2 (14:15→18:00)
[2019-06-26 14:21] LABS: Alcohol, Urine < 3.0 mg/dL (0-5); Amphetamine Screen, Urine POSITIVE (NEGATIVE); Barbiturate Scree,Urine NEGATIVE (NEGATIVE); Benzodiazephine Screen, Urine NEGATIVE (NEGATIVE); Cannabinoid Screen, Urine NEGATIVE (NEGATIVE); Cocaine Screen, Urine NEGATIVE (NEGATIVE); Phencyclidine Screen, Urine NEGATIVE (NEGATIVE)
[2019-06-26 14:29] LABS: Opiate Scree,Urine NEGATIVE (NEGATIVE)
[2019-06-26] MEDS: SODIUM CHLORIDE 0.9% 1,000 ML IV SCH (18:04)
[2019-06-27] MEDS ORDERED: POTASSIUM CHL 20 Meq TABLET PO ONE (00:30)
[2019-06-27] MEDS ORDERED: InsuLIN REG 1unit/0.01ml Soln (100units/ml) IV ONE ×3 (00:30→07:00)
[2019-06-27] MEDS: SODIUM CHLORIDE 0.9% 1,000 ML IV SCH (03:15)
[2019-06-27 06:00] VITALS: BP 122/71
== END 2019-06-27 07:08 | disposition other institution (70) ==
LOC: ER 12:38 → EDBD 12:38 → ER 06-27 07:08
DX: E11.65 Type 2 diabetes mellitus with hyperglycemia (principal); E86.0 Dehydration; F17.210 Nicotine dependence, cigarettes, uncomplicated
CPT/HCPCS: 36415; 71045; 80053; 80307; 81001; 82962; 83605; 85025; 96361; 96374; 96376; 99284; J1815; J7030

== ENCOUNTER → 2019-08-10 | Emergency (ER) | payer OTHER ==
[~2019-08-10] VITALS: Ht 172.7 cm; Wt 72.6 kg
[~2019-08-10] MED LIST: ACCU-CHEK COMFORT CURVE STRIP VI ONE; ACCU-CHEK COMFORT CURVE STRIP VI SCH; DEXTROSE (50%) 50ML SYRG IV PRN; InsuLIN REG 1unit/0.01ml Soln (100units/ml) IV ONE; InsuLIN REG 1unit/0.01ml Soln (100units/ml) SC ONE; InsuLIN REG 1unit/0.01ml Soln (100units/ml) SC SCH; SODIUM CHLORIDE 0.9% 1,000 ML IV ONE
[2019-08-10 21:31] LABS: Urine Bacteria NONE SEEN /hpf (None Seen); Urine Blood Negative /uL (Negative); Urine Specific Gravity 1.028 (1.001-1.035); Urine WBC 1 /hpf (0 - 3)
[2019-08-10 21:43] LABS: Basophils # (auto) 0.1 10 ^3/uL (0-0.2); Basophils % (auto) 0.8 % (0.0-2.0); Eosinophils # (auto) 0.1 10 ^3/uL (0-0.8); Eosinophils % (auto) 0.9 % (0.0-7.0); Hematocrit 39.7 % (41.0-53.0); Hemoglobin 13.7 g/dL (13.5-17.5); Lymphocytes # (auto) 1.8 10 ^3/uL (0.4-5.4); Lymphocytes % (auto) 17.3 % (10.0-50.0); Mean Corpuscular Hgb Conc. 34.4 g/dL (32.0-36.0); Mean Corpuscular Volume 90.1 fL (80.0-100.0); Monocytes # (auto) 0.6 10 ^3/uL (0-1.3); Monocytes % (auto) 5.9 % (0.0-12.0); Neutrophils # (auto) 7.6 10 ^3/uL (1.6-8.6); Neutrophils % (auto) 75.1 % (37.0-80.0); Nucleated Red Blood Cells % 0.1 %; Platelet Count (auto) 299 10^3/uL (140-450); Red Cell Distribution Width 13.9 % (11.8-14.3); White Blood Cell 10.1 10^3/uL (4.4-10.8)
[2019-08-10 21:47] LABS: Alcohol, Urine < 3.0 mg/dL (0-5); Amphetamine Screen, Urine POSITIVE (NEGATIVE); Barbiturate Scree,Urine NEGATIVE (NEGATIVE); Benzodiazephine Screen, Urine NEGATIVE (NEGATIVE); Cannabinoid Screen, Urine NEGATIVE (NEGATIVE); Cocaine Screen, Urine NEGATIVE (NEGATIVE); Opiate Scree,Urine NEGATIVE (NEGATIVE); Phencyclidine Screen, Urine NEGATIVE (NEGATIVE)
[2019-08-10 22:01] LABS: Albumin 3.4 g/dL (3.4-5.0); Anion Gap 8 (5-15); Blood Alcohol < 3.0 mg/dL (0-5); Blood Urea Nitrogen 22 mg/dL (7-18); Calcium 8.8 mg/dL (8.5-10.1); Carbon Dioxide 28 mmol/L (21-32); Chloride 92 mmol/L (98-107); Potassium 4.3 mmol/L (3.5-5.1); Salicylate < 1.7 mg/dL (2.8-20.0); Sodium 128 mmol/L (136-145)
[2019-08-10 22:03] LABS: Acetaminophen < 2.0 ug/mL (10-30)
[2019-08-10 22:10] LABS: Alanine Aminotransferase 19 U/L (16-61); Alkaline Phosphatase 134 U/L (45-117); Aspartate Aminotransferase 14 U/L (15-37); BUN/Creatinine Ratio 17.2; Bilirubin, Total 0.5 mg/dL (0.2-1.0); GFR African American 82 mL/min; GFR Non-African American 68 mL/min; Total Protein 7.7 g/dL (6.4-8.2)
[2019-08-10 22:13] LABS: Glucose 519 mg/dL (74-106)
[2019-08-12 14:52] VITALS: BP 114/64
== END | disposition home or self-care (01) ==
LOC: EDUNIT# 19:46 → ER 19:55 → EDBD 19:55
DX: F15.10 Other stimulant abuse, uncomplicated (principal); E11.00 Type 2 diabetes mellitus with hyperosmolarity without nonketotic hyperglycemic-hyperosmolar coma (NKHHC); R45.851 Suicidal ideations; F32.9 Major depressive disorder, single episode, unspecified; F20.9 Schizophrenia, unspecified; R41.0 Disorientation, unspecified
CPT/HCPCS: 36415; 80053; 80307; 80320; 80329; 81001; 82962; 85025; 96361; 96374; 96376; 99284; J1815; 96372

== ENCOUNTER 2020-11-06 22:09 | Inpatient (IN) | payer MEDICAID, OTHER ==
[~2020-11-06] VITALS: Ht 177.8 cm; Wt 91.6 kg
[2020-11-06] MEDS ORDERED: SODIUM CHLORIDE 0.9% 1,000 ML IV ONE (23:15)
[2020-11-06 23:42] LABS: Basophils # (auto) 0.1 10 ^3/uL (0-0.2); Basophils % (auto) 0.9 % (0.0-2.0); Eosinophils # (auto) 0.1 10 ^3/uL (0-0.8); Eosinophils % (auto) 0.9 % (0.0-7.0); Hematocrit 42.8 % (41.0-53.0); Hemoglobin 14.9 g/dL (13.5-17.5); Lymphocytes # (auto) 2.5 10 ^3/uL (0.4-5.4); Lymphocytes % (auto) 30.2 % (10.0-50.0); Mean Corpuscular Hemoglobin 31.1 pg (28.0-32.0); Mean Corpuscular Hgb Conc. 34.9 g/dL (32.0-36.0); Mean Corpuscular Volume 89.3 fL (80.0-100.0); Monocytes # (auto) 0.8 10 ^3/uL (0-1.3); Monocytes % (auto) 9.9 % (0.0-12.0); Neutrophils # (auto) 4.8 10 ^3/uL (1.6-8.6); Neutrophils % (auto) 58.1 % (37.0-80.0); Nucleated Red Blood Cells % 0.1 %; Platelet Count (auto) 308 10^3/uL (140-450); Red Cell Distribution Width 13.2 % (11.8-14.3); White Blood Cell 8.2 10^3/uL (4.4-10.8)
[2020-11-07 00:13] LABS: Total Protein 9.1 g/dL (6.4-8.2)
[2020-11-07 00:27] LABS: Albumin 4.2 g/dL (3.4-5.0); BUN/Creatinine Ratio 14.9; Calcium 8.6 mg/dL (8.5-10.1); Potassium 4.5 mmol/L (3.5-5.1)
[2020-11-07] MEDS ORDERED: SODIUM CHLORIDE 0.9% 1,000 ML IV ONE (00:45)
[2020-11-07] MEDS ORDERED: InsuLIN REG 1unit/0.01ml Soln (100units/ml) IV ONE (00:45)
[2020-11-07] MEDS ORDERED: InsuLIN R (HUMAN) 100 UNITS in SODIUM CHL 0.9% 99 ML IV SCH (02:30)
[2020-11-07] MEDS ORDERED: INSULIN LANTUS (GLARGINE) 1 /0.01ml (100units/ml) SC ONE (02:30)
[2020-11-07] MEDS ORDERED: DEXTROSE (50%) 50ML SYRG IV PRN ×3 (02:30→04:00)
[2020-11-07] MEDS ORDERED: InsuLIN REG 1unit/0.01ml Soln (100units/ml) ONE (03:05)
[2020-11-07] MEDS: ACCU-CHEK COMFORT CURVE STRIP VI SCH ×7 (03:10→20:00)
[2020-11-07] MEDS ORDERED: ONDANSETRON HCL 4 MG/2 ML VIAL IV PRN (04:00)
[2020-11-07] MEDS ORDERED: HYDROcodone-ACET 5/325MG TAB PO PRN (04:00)
[2020-11-07] MEDS: SODIUM CHLORIDE 0.9% 1,000 ML IV SCH ×2 (04:00→20:40)
[2020-11-07] MEDS ORDERED: ACETAMINOPHEN 325 MG TAB PO PRN (04:00)
[2020-11-07] MEDS ORDERED: MORPHINE SULF INJ 2 MG/ML SYRINGE 1ML IV PRN (04:00)
[2020-11-07] MEDS ORDERED: NITROGLYCERIN 0.4 MG SL TAB SL PRN (04:00)
[2020-11-07] MEDS ORDERED: DOCUSATE SOD 100 MG CAP PO PRN (04:00)
[2020-11-07] MEDS: InsuLIN REG 1unit/0.01ml Soln (100units/ml) SC SCH ×5 (04:00→20:00)
[2020-11-07] MEDS: INSULIN LANTUS (GLARGINE) 1 /0.01ml (100units/ml) SC SCH ×2 (06:49→22:13)
[2020-11-07 07:07] LABS: Basophils # (auto) 0 10 ^3/uL (0-0.2); Basophils % (auto) 0.7 % (0.0-2.0); Eosinophils # (auto) 0.3 10 ^3/uL (0-0.8); Eosinophils % (auto) 3.8 % (0.0-7.0); Hemoglobin 13.4 g/dL (13.5-17.5); Lymphocytes # (auto) 2.3 10 ^3/uL (0.4-5.4); Lymphocytes % (auto) 33.3 % (10.0-50.0); Mean Corpuscular Hemoglobin 31.7 pg (28.0-32.0); Mean Corpuscular Volume 87.7 fL (80.0-100.0); Monocytes # (auto) 0.7 10 ^3/uL (0-1.3); Monocytes % (auto) 10.9 % (0.0-12.0); Neutrophils # (auto) 3.5 10 ^3/uL (1.6-8.6); Neutrophils % (auto) 51.3 % (37.0-80.0); Nucleated Red Blood Cells % 0.5 %; Platelet Count (auto) 268 10^3/uL (140-450); Red Blood Cells 4.22 10^6/uL (4.5-5.90); Red Cell Distribution Width 13.5 % (11.8-14.3); White Blood Cell 6.9 10^3/uL (4.4-10.8)
[2020-11-07 07:08] LABS: Albumin 3.4 g/dL (3.4-5.0); Potassium 3.6 mmol/L (3.5-5.1)
[2020-11-07 07:11] LABS: BUN/Creatinine Ratio 17.9
[2020-11-07 07:13] LABS: Bilirubin, Total 0.6 mg/dL (0.2-1.0); Total Protein 7.5 g/dL (6.4-8.2)
[2020-11-07] MEDS: HEPARIN SODIUM (PORCINE) 5000 UNITS/ML 1ML VIAL SC SCH ×2 (10:00→20:12)
[2020-11-07] MEDS: ZINC SULFATE 220mg CAP or TAB PO SCH (10:16)
[2020-11-07] MEDS: MULTIPLE VITAMIN TAB PO SCH (10:16)
[2020-11-07] MEDS: ASCORBIC ACID 500 MG TAB PO SCH ×2 (10:16→22:00)
[2020-11-07] MEDS: FAMOTIDINE INJECTION 40 MG in SODIUM CHL 0.9% 100 ML IV SCH (10:17)
[2020-11-07 12:13] LABS: BUN/Creatinine Ratio 20.7; Calcium 7.7 mg/dL (8.5-10.1); Potassium 3.9 mmol/L (3.5-5.1)
[2020-11-07 17:46] VITALS: BP 144/84
[2020-11-07] MEDS: risperiDONE 1 MG TAB PO SCH (17:46)
[2020-11-07 19:58] LABS: BUN/Creatinine Ratio 14.8; Calcium 7.7 mg/dL (8.5-10.1)
[2020-11-07 22:00] VITALS: BP 110/61
[2020-11-08 01:42] LABS: BUN/Creatinine Ratio 17.6; Calcium 7.6 mg/dL (8.5-10.1); Potassium 3.8 mmol/L (3.5-5.1)
[2020-11-08] MEDS: ACCU-CHEK COMFORT CURVE STRIP VI SCH ×6 (04:24→20:54)
[2020-11-08] MEDS: InsuLIN REG 1unit/0.01ml Soln (100units/ml) SC SCH ×6 (04:28→21:19)
[2020-11-08 05:00] VITALS: BP 131/81
[2020-11-08] MEDS: INSULIN LANTUS (GLARGINE) 1 /0.01ml (100units/ml) SC SCH (06:36)
[2020-11-08 08:17] VITALS: BP 129/76
[2020-11-08] MEDS: risperiDONE 1 MG TAB PO SCH ×2 (08:48→20:53)
[2020-11-08] MEDS: ASCORBIC ACID 500 MG TAB PO SCH ×2 (09:57→20:53)
[2020-11-08] MEDS: MULTIPLE VITAMIN TAB PO SCH (09:57)
[2020-11-08] MEDS: HEPARIN SODIUM (PORCINE) 5000 UNITS/ML 1ML VIAL SC SCH ×2 (09:57→21:18)
[2020-11-08] MEDS: ZINC SULFATE 220mg CAP or TAB PO SCH (09:57)
[2020-11-08] MEDS ORDERED: INSULIN LANTUS (GLARGINE) 1 /0.01ml (100units/ml) SC SCH ×2 (10:00→22:00)
[2020-11-08] MEDS: FAMOTIDINE INJECTION 40 MG in SODIUM CHL 0.9% 100 ML IV SCH (10:46)
[2020-11-08 12:01] LABS: Urine WBC None Seen /hpf (0 - 3)
[2020-11-08 12:23] LABS: Urine Bacteria NONE SEEN /hpf (None Seen); Urine Blood Negative /uL (Negative); Urine Specific Gravity 1.002 (1.001-1.035)
[2020-11-08 12:25] LABS: Alcohol, Urine < 3.0 mg/dL (0-10); Amphetamine Screen, Urine NEGATIVE (NEGATIVE); Barbiturate Scree,Urine NEGATIVE (NEGATIVE); Benzodiazephine Screen, Urine NEGATIVE (NEGATIVE); Cannabinoid Screen, Urine NEGATIVE (NEGATIVE); Cocaine Screen, Urine NEGATIVE (NEGATIVE); Opiate Scree,Urine NEGATIVE (NEGATIVE); Phencyclidine Screen, Urine NEGATIVE (NEGATIVE)
[2020-11-08] MEDS ORDERED: DEXTROSE (50%) 50ML SYRG IV PRN (13:45)
[2020-11-08] MEDS ORDERED: METF-372 PO (13:57)
[2020-11-08] MEDS ORDERED: RIS1T PO (13:57)
[2020-11-08] MEDS ORDERED: INSLANTI SC (13:57)
[2020-11-08 17:29] VITALS: BP 144/82
[2020-11-08] MEDS: FAMOTIDINE 20 MG TAB PO SCH (20:53)
[2020-11-08 21:31] LABS: Basophils # (auto) 0.1 10 ^3/uL (0-0.2); Basophils % (auto) 1.7 % (0.0-2.0); Eosinophils # (auto) 0.3 10 ^3/uL (0-0.8); Eosinophils % (auto) 6.6 % (0.0-7.0); Hematocrit 34.9 % (41.0-53.0); Hemoglobin 12.3 g/dL (13.5-17.5); Lymphocytes # (auto) 2.1 10 ^3/uL (0.4-5.4); Lymphocytes % (auto) 41.5 % (10.0-50.0); Mean Corpuscular Hemoglobin 31.3 pg (28.0-32.0); Mean Corpuscular Hgb Conc. 35.4 g/dL (32.0-36.0); Mean Corpuscular Volume 88.5 fL (80.0-100.0); Monocytes # (auto) 0.5 10 ^3/uL (0-1.3); Neutrophils # (auto) 2.1 10 ^3/uL (1.6-8.6); Neutrophils % (auto) 41.2 % (37.0-80.0); Platelet Count (auto) 251 10^3/uL (140-450); Red Blood Cells 3.94 10^6/uL (4.5-5.90); Red Cell Distribution Width 13.6 % (11.8-14.3); White Blood Cell 5.1 10^3/uL (4.4-10.8)
[2020-11-08 21:49] LABS: Anion Gap 7 (5-15); Blood Urea Nitrogen 16 mg/dL (7-18); Calcium 8.2 mg/dL (8.5-10.1); Carbon Dioxide 25 mmol/L (21-32); Chloride 105 mmol/L (98-107); Glucose 227 mg/dL (74-106); Potassium 4.4 mmol/L (3.5-5.1); Sodium 137 mmol/L (136-145)
[2020-11-08 21:51] LABS: GFR African American 109 mL/min; GFR Non-African American 90 mL/min
[2020-11-08 21:54] LABS: Alanine Aminotransferase 27 U/L (16-61); Alkaline Phosphatase 117 U/L (45-117); Aspartate Aminotransferase 22 U/L (15-37); Bilirubin, Total 0.3 mg/dL (0.2-1.0)
[2020-11-08 22:16] VITALS: BP 137/80
[2020-11-09 04:28] VITALS: BP 128/74
[2020-11-09] MEDS: InsuLIN REG 1unit/0.01ml Soln (100units/ml) SC SCH ×2 (06:34→11:30)
[2020-11-09] MEDS: ACCU-CHEK COMFORT CURVE STRIP VI SCH ×2 (06:34→11:45)
[2020-11-09 08:15] VITALS: BP 159/98
[2020-11-09] MEDS: MULTIPLE VITAMIN TAB PO SCH (09:40)
[2020-11-09] MEDS: ZINC SULFATE 220mg CAP or TAB PO SCH (09:40)
[2020-11-09] MEDS: ASCORBIC ACID 500 MG TAB PO SCH (09:41)
[2020-11-09] MEDS: risperiDONE 1 MG TAB PO SCH (09:41)
[2020-11-09] MEDS: FAMOTIDINE 20 MG TAB PO SCH (09:41)
[2020-11-09] MEDS: HEPARIN SODIUM (PORCINE) 5000 UNITS/ML 1ML VIAL SC SCH (09:50)
== END 2020-11-09 11:45 | disposition left against medical advice (07) | DRG 420 ==
LOC: EDBD 22:09 → EDUNIT# 22:09 → ER 22:11 → TELE 11-07 04:07 → TELE-WESTW 11-07 16:34
PROVIDERS: ADMIT Nurse Practitioner Family; ATTEND Internal Medicine
DX: E11.65 Type 2 diabetes mellitus with hyperglycemia (principal); N17.0 Acute kidney failure with tubular necrosis; R45.851 Suicidal ideations; E11.21 Type 2 diabetes mellitus with diabetic nephropathy; F20.9 Schizophrenia, unspecified; F31.9 Bipolar disorder, unspecified; D63.8 Anemia in other chronic diseases classified elsewhere; N18.2 Chronic kidney disease, stage 2 (mild); Z59.0 Homelessness; E11.22 Type 2 diabetes mellitus with diabetic chronic kidney disease; F12.10 Cannabis abuse, uncomplicated; F15.10 Other stimulant abuse, uncomplicated; F17.210 Nicotine dependence, cigarettes, uncomplicated; Z75.1 Person awaiting admission to adequate facility elsewhere; Z82.49 Family history of ischemic heart disease and other diseases of the circulatory system; Z83.3 Family history of diabetes mellitus; Z91.19 Patient's noncompliance with other medical treatment and regimen; Z20.822 Contact with and (suspected) exposure to COVID-19; Z53.29 Procedure and treatment not carried out because of patient's decision for other reasons
CPT/HCPCS: 36415; 80048; 80053; 80307; 81001; 82010; 82962; 83036; 84443; 85025; 87081; 87426; 96361; 96365; 96376; G0378; J1815; J3490

== ENCOUNTER 2020-11-11 04:12 | Emergency (ER) | payer MEDICAID ==
[~2020-11-11] VITALS: Ht 167.6 cm; Wt 72.6 kg
[~2020-11-11 04:12] MED LIST changes: -ACCU-CHEK COMFORT CURVE STRIP VI ONE; -ACCU-CHEK COMFORT CURVE STRIP VI SCH; -DEXTROSE (50%) 50ML SYRG IV PRN; +INSLANTI SC; -InsuLIN REG 1unit/0.01ml Soln (100units/ml) IV ONE; -InsuLIN REG 1unit/0.01ml Soln (100units/ml) SC ONE; -InsuLIN REG 1unit/0.01ml Soln (100units/ml) SC SCH; +METF-372 PO; +RIS1T PO; -SODIUM CHLORIDE 0.9% 1,000 ML IV ONE
[2020-11-11 04:23] VITALS: BP 149/83
== END 2020-11-11 04:30 | disposition left against medical advice (07) ==
LOC: ER 04:12 → EDBD 04:12 → EDUNIT# 04:12 → ER 04:30
DX: H57.9 Unspecified disorder of eye and adnexa (principal); Z53.21 Procedure and treatment not carried out due to patient leaving prior to being seen by health care provider